=== PATIENT | male | born 1985 | race Caucasian/White ===

== ENCOUNTER 2020-05-17 01:30 | Emergency (ER) | payer SELFPAY ==
[~2020-05-17] VITALS: Ht 172.7 cm; Wt 72.7 kg
[~2020-05-17 01:30] MED LIST: DILAUDID4 MG; HYDROCODON-ACE1 EAC7 PO; KLONOPIN1 MG PO; LITHOBID 300 M300 MG PO
[2020-05-17 01:35] VITALS: Ht 172.7 cm; Wt 72.7 kg
[2020-05-17] MEDS ORDERED: KEFLEX750 MG PO (01:47)
[2020-05-17 02:55] VITALS: BP 154/96
== END 2020-05-17 02:55 | disposition home or self-care (01) ==
LOC: D.ER 01:30
DX: S51.812A Laceration without foreign body of left forearm, initial encounter (principal); W19.XXXA Unspecified fall, initial encounter; Y93.9 Activity, unspecified; Y92.9 Unspecified place or not applicable

== ENCOUNTER 2020-05-24 02:12 | Emergency (ER) | payer SELFPAY ==
[~2020-05-24] VITALS: Ht 172.7 cm; Wt 76.4 kg
[~2020-05-24 02:12] MED LIST changes: +KEFLEX750 MG PO
[2020-05-24 02:16] VITALS: Ht 172.7 cm; Wt 76.4 kg
[2020-05-24 03:04] VITALS: BP 159/93
== END 2020-05-24 03:04 | disposition home or self-care (01) ==
LOC: D.ER 02:12
DX: S50.11XA Contusion of right forearm, initial encounter (principal); X58.XXXA Exposure to other specified factors, initial encounter